=== PATIENT | male | born 1950 | race Caucasian/White ===

== ENCOUNTER 2018-04-09 11:48 | Emergency (ER) | payer MEDICARE ==
[~2018-04-09] VITALS: Ht 182.9 cm; Wt 80.0 kg
[2018-04-09] MEDS ORDERED: HYDR-565 PO (13:09)
[2018-04-09 13:13] VITALS: BP 142/85
== END 2018-04-09 13:14 | disposition home or self-care (01) ==
LOC: ER 11:49
DX: M47.812 Spondylosis without myelopathy or radiculopathy, cervical region (principal); M79.602 Pain in left arm
CPT/HCPCS: 72040; 99284